=== PATIENT | female | born 1990 | race African-American/Black ===

== ENCOUNTER 2023-10-22 15:00 | Emergency (ER) | payer OTHER, SELFPAY ==
[2023-10-22] VITALS (17 sets, daily range): BP systolic 99–131; BP diastolic 59–96; PULSE 60–97; TEMP 36.4; O2SAT 96–100; BMI 21.7
--- NOTE | 2023-10-22 15:15 | ED.GENADUL1 ---
HPI HPI - General Adult General Chief complaint: Nausea/Vomiting/Diarrhea Stated complaint: ABDOMINAL PAIN Time Seen by Provider: 10/22/23 15:06 Source: patient Mode of arrival: ambulance Limitations: no limitations History of Present Illness HPI narrative: 33-year-old female presents to the emergency department with complaint of abdominal pain. Locates pain to the lower abdominal region, describes it as crampy. Onset at 0100 hrs. this morning. Pain has progressively worsened. History of dysmenorrhagia. 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 + Nausea and vomiting. Quality:?Cramp Severity:?Severe Timing: As above, constant Context: Normal setting and activity? Modifying factors:?None Associated symptoms: As above Related Data Previous Rx's ?Medication ?Instructions ?Recorded ibuprofen 600 mg tablet 600 mg PO Q8H PRN pain #20 tabs 10/22/23 ondansetron HCl 4 mg tablet 4 mg PO Q8H PRN nausea and 10/22/23 vomiting 3 days #10 tabs tizanidine 2 mg capsule 2 mg PO BID PRN muscle cramping 10/22/23 #10 caps Allergies Allergy/AdvReac Type Severity Reaction Status Date / Time amoxicillin Allergy Severe Verified 10/22/23 15:08 ciprofloxacin Allergy Severe Verified 10/22/23 15:08 morphine Allergy Severe Verified 10/22/23 15:08 Opioid HPI Opioid Management Most Recent Opioid Data: Last Pain Scale 8 10/22/23 15:55 Last MAR Pain Assessment 10/22/23 15:55 Review of Systems ROS Narrative CONST: Denies any fever, chills HENT: Denies any congestion, sore throat RESP: Denies any cough, shortness of breath CV: Denies any chest pain, peripheral edema GI: +abd pain,nausea, vomiting.? Denies any diarrhea : + vaginal bleeding. States 1st day of menstrual cycle. Denies any flank pain, dysuria MS: Denies any back pain, myalgias SKIN: Denies any color change, rash NEURO: Denies numbness, weakness PSYCHIATRIC: Denies confusion, agitation Exam Narrative Exam Narrative: Vital signs reviewed Nurses notes noted CONST: Nontoxic, well appearing, well nourished, in no distress.? No diaphoresis.?? HENT: normocephalic, atraumatic, moist mucous membrane, no abnormalities of the nose noted, hearing normal EYES: normal appearing conjunctiva, no apparent discharge bilat NECK: normal appearance CV: normal rate, regular rhythm, no murmur RESP: normal effort, speaking in complete sentences. Lung sounds clear and equal bilat.? No wheezes, rales, rhonchi GI: normal bowel sounds, soft, no distension, + diffuse lower abd tenderness. No rebound or guarding : no CVA tenderness MS: no edema, tenderness SKIN: no pallor NEURO: A&Ox 3, no focal findings PSYCH: normal mood, affect Constitutional Vital Signs, click to edit/add: Last Vital Signs Temp 97.5 F L 10/22/23 15:02 Pulse 81 10/22/23 18:00 Resp 14 10/22/23 18:00 BP 99/66 10/22/23 18:00 Pulse Ox 98 10/22/23 18:00 O2 Del Method Room Air 10/22/23 15:02 Course Reevaluation(s) Reevaluation #1: Feeling better after treatment. Feeling well enough to go home. Discussed with patient and results, plan, disposition. They are agreeable and voice no other questions or concerns. Time: 18:15 Vital Signs Vital signs: Vital Signs Temperature 97.5 F L 10/22/23 15:02 Pulse Rate 97 H 10/22/23 15:02 Respiratory Rate 18 10/22/23 15:02 Blood Pressure 120/90 10/22/23 15:02 Pulse Oximetry 100 10/22/23 15:02 Oxygen Delivery Method Room Air 10/22/23 15:02 Temperature 97.5 F L 10/22/23 15:02 Pulse Rate 81 10/22/23 18:00 Respiratory Rate 14 10/22/23 18:00 Blood Pressure 99/66 10/22/23 18:00 Pulse Oximetry 98 10/22/23 18:00 Oxygen Delivery Method Room Air 10/22/23 15:02 Medical Decision Making MDM Narrative Medical decision making narrative: This is a pleasant 33-year-old female who presented to the emergency department via EMS with complaint of unbearable lower abdominal pain. Patient with history of dysmenorrhea. Today is the first day of her menstrual cycle. Pain began around 0100 hrs. and has persisted throughout the day. Was unable to continue to drive the truck she was in because of it. She has not taken anything for the pain prior to arrival. On arrival, afebrile, vital signs are stable. On exam, nontoxic, uncomfortable appearing patient in mild distress secondary to pain. Heart regular rate and rhythm. Lung sounds clear and equal bilaterally. Abdomen is soft with lower tenderness. No rebound or guarding present. Labs reveal No leukocytosis, anemia, thrombocytopenia, electrolyte imbalance, renal impairment. LFTs, lipase unremarkable. test is negative. Urinalysis reveals hematuria, no findings concerning for infection. Pain treated during ED course with fentanyl, nausea treated with Zofran. After negative test, patient was given Toradol. This improved her pain to 6/10 on pain scale. She was given dose of IV Norflex which further improved her pain. Discussed with patient CT scan of the abdomen/pelvis due to the severity of her pain. Patient refused, states that this is just her usual cramping, pain was just uncontrolled. Informed patient other possible etiologies for her pain including, but not limited to appendicitis, diverticulitis. She expresses understanding of this, but continues to refuse a CT scan adhering to that this is her menstrual cramps. She was advised to she can change her mind at any time and we will be happy to perform the test. Favor dysmenorrhea based on history and physical exam Urinary tract infection less likely based on urinalysis Hemorrhage less likely based on history Disposition ? The patient was discharged. Plan: Patient will be discharged to home. Condition at time of disposition: stable She was sent home with prescriptions for tizanidine, ibuprofen, and Zofran. Advised to follow up with primary provider. Advised to return for any worsening and/or development of new, concerning signs or symptoms PLEASE NOTE: Portions of the medical record may have been produced using electronic chief accounting officer and may contain errors with respect to translation of words which may not have been identified prior to finalization of the chart. Medical Records Medical records reviewed: Yes I reviewed the patient's medical records Medical records narrative: None available in our system, however patient states history of dysmenorrhea Lab Data Lab results reviewed: Yes I reviewed the patient's lab results Labs: Lab Results 10/22/23 10/22/23 Range/Units 15:10 16:05 WBC 11.0 (4.0-11.0) 10^3/uL RBC 5.79 H (4.20-5.40) 10^6/uL Hgb 13.7 (12.0-16.0) g/dL Hct 44.5 (36.0-48.0) % MCV 76.9 L (81.0-99.0) fL MCH 23.7 L (26.7-34.0) pg MCHC 30.8 (29.9-35.2) g/dL RDW 15.1 H (11.0-15.0) % Plt Count 352 (150-450) 10^3/uL MPV 10.4 (9.5-13.5) fL Neut % (Auto) 69.0 (43.0-75.0) % Lymph % (Auto) 23.4 (20.5-60.0) % [place] % (Auto) 6.5 (1.7-12.0) % Eos % (Auto) 0.5 L (0.9-7.0) % Baso % (Auto) 0.3 (0.2-2.0) % Neut # (Auto) 7.6 H (1.4-6.5) 10^3/uL Lymph # (Auto) 2.6 (1.2-3.8) 10^3/uL [place] # (Auto) 0.7 (0.3-0.8) 10^3/uL Eos # (Auto) 0.1 (0.0-0.7) 10^3/uL Baso # (Auto) 0.0 (0.0-0.1) 10^3/uL Abs Immat Gran (auto) 0.03 (0.00-0.03) 10^3/uL Imm/Tot Granulo (auto) 0.3 (0.0-0.5) % Sodium 142 (136-145) mmol/L Potassium 3.6 (3.5-5.1) mmol/L Chloride 105 (98-107) mmol/L Carbon Dioxide 21.7 (21.0-32.0) mmol/L Anion Gap 18.9 BUN 9.0 (7.0-18.0) mg/dL Creatinine 1.00 (0.55-1.02) mg/dL Est GFR ( Amer) >60 (>=60) Est GFR (Non-Af Amer) >60 (>=60) BUN/Creatinine Ratio 9.0 Glucose 82 (74-106) mg/dL Calcium 9.9 (8.5-10.1) mg/dL Magnesium 1.8 (1.8-2.4) mg/dL Total Bilirubin 0.8 (0.2-1.0) mg/dL AST 16 (15-37) U/L ALT 19 (14-59) U/L Alkaline Phosphatase 65 (46-116) U/L Total Protein 9.0 H (6.4-8.2) g/dL Albumin 4.7 (3.4-5.0) g/dL Globulin 4.3 g/dL Albumin/Globulin Ratio 1.1 Lipase 47.0 (16.0-77.0) U/L Serum HCG, Qual Negative (NEGATIVE) Urine Color Yellow (YELLOW) Urine Clarity Clear (CLEAR) Urine pH 6.0 (5.0-9.0) Ur Specific [place] 1.025 (1.005-1.025) Urine Protein 100 A (NEG/TRACE) mg/dL Urine Glucose (UA) Negative (NEGATIVE) mg/dL Urine Ketones 40 A (NEGATIVE) mg/dL Urine Occult Blood Large A (NEGATIVE) Urine Nitrite Negative (NEGATIVE) Urine Bilirubin Small A (NEGATIVE) Urine Urobilinogen 1.0 (0.2-1.0) EU/dL Ur Leukocyte Esterase Small A (NEGATIVE) Urine RBC 20-50 A (0-2) #/HPF Urine WBC 5-10 A (NONE SEEN) #/HPF Ur Squamous Epith Cells Few A (NONE/RARE) #/LPF Urine Crystals None seen (None Seen) #/HPF Urine Bacteria Trace A (NONE SEEN) #/HPF Urine Casts Seen A (NONE SEEN) #/LPF Hyaline Casts Rare Urine Mucus Trace A (NONE SEEN) Ur Culture Indicated? Yes Discharge Plan Discharge Stand Alone Forms: Portal Instructions Chief Complaint: Nausea/Vomiting/Diarrhea Clinical Impression: Abdominal cramping, Dysmenorrhea Patient Disposition: Home, Self-Care Time of Disposition Decision: 18:15 Condition: Good Mode of Transportation: Private Vehicle Prescriptions / Home Meds: New tizanidine 2 mg capsule 2 mg PO BID PRN (Reason: muscle cramping) Qty: 10 0RF ibuprofen 600 mg tablet 600 mg PO Q8H PRN (Reason: pain) Qty: 20 0RF ondansetron HCl 4 mg tablet 4 mg PO Q8H PRN (Reason: nausea and vomiting) 3 Days Qty: 10 0RF Print Language: Armenian Instructions: Dysmenorrhea (ED), Abdominal Pain (ED) Referrals: Physician,Non-Staff, MD [Primary Care Provider] - 1 week Discharge Date/Time: 10/22/23 18:27
[2023-10-22] MEDS: ONDANSETRON PF 4 MG/2 ML VIAL IV (15:25)
[2023-10-22] MEDS: FENTANYL CITRATE/PF 100 MCG/2 ML VIAL 50 MCG IV (15:25)
[2023-10-22] MEDS: 0.9 % SODIUM CHLORIDE 1,000 ML 999 ML IV (15:25)
[2023-10-22 15:35] LABS: Basophils Percent Auto 0.3 % (0.2-2.0); Eosinophils Absolute Auto 0.1 10^3/uL (0.0-0.7); Eosinophils Percent Auto 0.5 % (0.9-7.0); Hematocrit 44.5 % (36.0-48.0); Hemoglobin 13.7 g/dL (12.0-16.0); Immature Granulocytes Abs Auto 0.03 10^3/uL (0.00-0.03); Immature Granulocytes Pct Auto 0.3 % (0.0-0.5); Lymphocytes Absolute Auto 2.6 10^3/uL (1.2-3.8); Lymphocytes Percent Auto 23.4 % (20.5-60.0); Mean Corpuscular HGB Conc 30.8 g/dL (29.9-35.2); Mean Corpuscular Hemoglobin 23.7 pg (26.7-34.0); Mean Corpuscular Volume 76.9 fL (81.0-99.0); Mean Platelet Volume 10.4 fL (9.5-13.5); Monocytes Absolute Auto 0.7 10^3/uL (0.3-0.8); Monocytes Percent Auto 6.5 % (1.7-12.0); Neutrophils Absolute Auto 7.6 10^3/uL (1.4-6.5); Platelet Count 352 10^3/uL (150-450); Red Blood Count 5.79 10^6/uL (4.20-5.40); Red Cell Distribution Width 15.1 % (11.0-15.0)
[2023-10-22 15:45] LABS: HCG Qualitative NEGATIVE (NEGATIVE)
[2023-10-22 15:51] LABS: Alanine Aminotransferase 19 U/L (14-59); Albumin Globulin Ratio 1.1; Albumin Level 4.7 g/dL (3.4-5.0); Alkaline Phosphatase 65 U/L (46-116); Anion Gap 18.9; Aspartate Amino Transferase 16 U/L (15-37); Bilirubin Total 0.8 mg/dL (0.2-1.0); Calcium 9.9 mg/dL (8.5-10.1); Carbon Dioxide 21.7 mmol/L (21.0-32.0); Chloride 105 mmol/L (98-107); Estimated GFR (African America >60 (>=60); Estimated GFR (Non-African Ame >60 (>=60); Globulin 4.3 g/dL; Glucose 82 mg/dL (74-106); Magnesium 1.8 mg/dL (1.8-2.4); Potassium 3.6 mmol/L (3.5-5.1); Sodium 142 mmol/L (136-145)
--- NOTE | 2023-10-22 15:52 | ECG_ITS ---
[facility] Test Date: 2023-10-22 Pat Name: ELENITA CAREY Department: Room: - Gender: Female Functional Director: : [id number] Requested By: [id number] Order Number: [id number] Reading MD: MIKAYLA CARCAMO Measurements Intervals [place] Rate: 74 P: 81 MN: 144 QRS: 82 QRSD: 68 T: 69 QT: 368 QTc: 396 Interpretive Statements 1100 Sinus rhythm 1102 Sinus arrhythmia 9110 normal ECG No previous ECG available for comparison Electronically Signed On 10-23-2023 6:56:30 EDT by MIKAYLA CARCAMO
[2023-10-22] MEDS: KETOROLAC TROMETHAMINE 30 MG/ML VIAL 15 MG IVP (15:55)
[2023-10-22 16:11] LABS: Bilirubin Urine SMALL (NEGATIVE); Blood Urine LARGE (NEGATIVE); Clarity Urine CLEAR (CLEAR); Color Urine YELLOW (YELLOW); Glucose Urine UA NEGATIVE (NEGATIVE); Ketones Urine 40 mg/dL (NEGATIVE); Leukocyte Esterase Urine SMALL (NEGATIVE); Nitrite Urine NEGATIVE (NEGATIVE); Protein Urine 100 mg/dL (NEG/TRACE); Specific Gravity Urine 1.025 (1.005-1.025)
[2023-10-22 16:21] LABS: Bacteria Urine TRACE #/HPF (NONE SEEN); Cast Seen? SEEN #/LPF (NONE SEEN); Crystals Seen? None Seen #/HPF (None Seen); Hyaline Casts Urine RARE; Mucus Urine TRACE (NONE SEEN); RBC Urine 20-50 #/HPF (0-2); Squamous Epithelial Cell Urine FEW #/LPF (NONE/RARE); Urine Culture Indicated YES
[2023-10-22] MEDS: ORPHENADRINE 60 MG/ 2 ML VIAL IV (17:40)
== END 2023-10-22 18:27 | disposition home or self-care (01) ==
PROVIDERS: Physician Assistant; Emergency Provider Emergency Medicine
DX: R10.9 Unspecified abdominal pain (principal); N94.6 Dysmenorrhea, unspecified
CPT/HCPCS: 36415; 80053; 81001; 83690; 83735; 84703; 85025; 87086; 93005; 96361; 96374; 96375; 99285